=== PATIENT | female | born 1985 | race Caucasian/White ===

== ENCOUNTER 2018-01-21 09:33 | Emergency (ER) | payer OTHER ==
[~2018-01-21] VITALS: Ht 157.5 cm; Wt 61.2 kg
[2018-01-21] MEDS ORDERED: PRENATABS FA T1 EACH (09:41)
== END 2018-01-21 15:32 | disposition home or self-care (01) ==
LOC: ER 09:33
DX: Z34.01 Encounter for supervision of normal first pregnancy, first trimester (principal); O20.0 Threatened abortion